=== PATIENT | male | born 1980 | race Caucasian/White ===

== ENCOUNTER 2025-04-18 14:22 | Inpatient (IN) | payer SELFPAY ==
[~2025-04-18] VITALS: Ht 165.1 cm; Wt 75.0 kg
[2025-04-18] MEDS ORDERED: IOHEXOL 350 MG/ML 100 ML VIAL ONE (14:37)
[2025-04-18 14:59] LABS: BASOPHILS % (AUTO) 0.6 % (0.0-2.0); EOSINOPHILS % (AUTO) 2.7 % (1.0-6.0); HEMATOCRIT 42.7 % (41-53); HEMOGLOBIN 14.3 g/dL (13.5-17.5); LYMPHOCYTES # (AUTO) 2.7 K/uL (1.0-4.8); LYMPHOCYTES % (AUTO) 25.2 % (22.0-44.0); MEAN CORPUSCULAR HEMOGLOBIN 28.7 pg (26.0-34.0); MEAN CORPUSCULAR HGB CONC 33.6 G/dL (31.0-37.0); MEAN CORPUSCULAR VOLUME 86 fL (80-100); MONOCYTES # (AUTO) 0.8 K/uL (0.1-1.0); MONOCYTES % (AUTO) 7.4 % (2.0-9.0); NEUTROPHILS # (AUTO) 6.8 K/uL (1.8-7.7); NEUTROPHILS % (AUTO) 64.1 % (40.0-70.0); PLATELET COUNT (AUTO) 175 K/uL (150-450); RED BLOOD CELL COUNT(AUTO) 4.98 MIL/uL (4.50-5.90); RED CELL DISTRIBUTION WIDTH 13.6 % (11.5-14.5); WHITE BLOOD COUNT (AUTO) 10.7 K/uL (4.5-11.0)
[2025-04-18 15:08] LABS: ANION GAP 7 mmol/L (8-16); CALCIUM, TOTAL 8.7 mg/dL (8.8-10.5); CARBON DIOXIDE 25 mmol/L (22-29); CHLORIDE 104 mmol/L (98-107); GLOMERULAR FILTR. RATE CALC > 60 mL/min (>60); GLUCOSE,RANDOM 100 mg/dL (70-110); POTASSIUM 3.8 mmol/L (3.5-5.1); SODIUM SERUM 136 mmol/L (136-145); UREA NITROGEN, BLOOD 11 mg/dL (7-18)
[2025-04-18 15:10] LABS: HEMOGLOBIN A1C 5.2 % (3.8-5.6)
[2025-04-18] MEDS: LORazepam 2 MG TABLET PO ONE (15:10)
[2025-04-18 15:15] LABS: ALANINE AMINOTRANSFERASE 15 U/L (12-78); ALBUMIN 3.1 g/dL (3.4-5.0); ALKALINE PHOSPHATASE 92 U/L (46-116); ASPARTATE AMINOTRANSFERASE 12 U/L (15-37); BILIRUBIN,TOTAL 0.4 mg/dL (0.1-1.0); CHOL/HDL RATIO 6.3 (4.2-7.3); CHOLESTEROL 225 mg/dL (131-200); HDL CHOLESTEROL 36 mg/dL (40-60); LDL CHOL (CALC.) 161 mg/dL (0-130); TRIGLYCERIDES 142 mg/dL (15-150)
[2025-04-18 15:17] LABS: TROPONIN I-HIGH SENSITIVITY 4 ng/L (<76)
[2025-04-18 15:29] LABS: PROTHROMBIN TIME 10.4 SEC (9.4-11.6)
[2025-04-18 15:49] LABS: APPEARANCE,URINE CLEAR (CLEAR); BILIRUBIN,URINE NEGATIVE (NEGATIVE); COLOR,URINE COLORLESS (YELLOW); GLUCOSE, URINE (UA) NEGATIVE (NEGATIVE); KETONES,URINE NEGATIVE (NEGATIVE); LEUKOCYTE ESTERASE ,URINE NEGATIVE (NEGATIVE); NITRATE,URINE NEGATIVE (NEGATIVE); OCCULT BLOOD,URINE NEGATIVE (NEGATIVE); PROTEIN,URINE NEGATIVE (NEGATIVE); UROBILINOGEN,URINE <=1.0 mg/dL (<=1.0)
[2025-04-18 15:55] LABS: ALCOHOL, URINE DRUG SCREEN NEGATIVE (NEGATIVE); AMPHET/METH SCREEN,URINE NEGATIVE (NEGATIVE); BARBITURATE SCREEN, URINE NEGATIVE (NEGATIVE); BENZODIAZEPINES SCREEN,URINE NEGATIVE (NEGATIVE); CANNABINOID SCREEN,URINE NEGATIVE (NEGATIVE); COCAINE SCREEN,URINE NEGATIVE (NEGATIVE); METHADONE SCREEN, URINE NEGATIVE (NEGATIVE); OPIATE SCREEN,URINE NEGATIVE (NEGATIVE); PHENCYCLIDINE SCREEN,URINE NEGATIVE (NEGATIVE)
[2025-04-18] MEDS: ASPIRIN 81 MG CHEWABLE TABLET PO SCH (16:24)
[2025-04-18] MEDS: CLOPIDOGREL BISULFATE 75 MG TABLET PO SCH (16:25)
[2025-04-18] MEDS: ASPIRIN 81 MG CHEWABLE TABLET PO ONE (16:25)
[2025-04-18] MEDS ORDERED: MAGNESIUM HYDROXIDE SUSPENSION 30 ML UDCUP PO PRN (17:45)
[2025-04-18] MEDS ORDERED: HYDROCODONE/ACETAMINOPHEN 5-325 MG TABLET PO PRN (17:45)
[2025-04-18] MEDS ORDERED: ONDANSETRON HCL 4 MG/2 ML VIAL IVP PRN (17:45)
[2025-04-18] MEDS ORDERED: ALBUTEROL SULFATE 2.5 MG/0.5 ML NEB SOLUTION NEB PRN (17:45)
[2025-04-18] MEDS ORDERED: MORPHINE SULFATE 2 MG/ML SYRINGE IVP PRN (17:45)
[2025-04-18] MEDS ORDERED: BISACODYL 10 MG RECTAL RECTAL SUPPOSITORY PR PRN (17:45)
[2025-04-18] MEDS ORDERED: ACETAMINOPHEN 325 MG TABLET PO PRN (17:45)
[2025-04-18] MEDS ORDERED: ZOLPIDEM TARTRATE 5 MG TABLET PO PRN (17:45)
[2025-04-18] MEDS ORDERED: IPRATROPIUM BROMIDE 0.5 MG/2.5 ML NEB SOLUTION NEB PRN (17:45)
[2025-04-18] MEDS: NICOTINE POLACRILEX 4 MG GUM CHEW ONE (18:47)
[2025-04-18] MEDS: NICOTINE 14 MG/24 HOUR PATCH TD SCH (19:15)
[2025-04-18] MEDS: DOCUSATE SODIUM 100 MG CAPSULE PO SCH (20:18)
[2025-04-18 20:42] LABS: TROPONIN I-HIGH SENSITIVITY 6 ng/L (<76)
[2025-04-18 20:53] VITALS: BP 152/102; PULSE 78; RESP 18; TEMP 98.1; O2SAT 96
[2025-04-18] MEDS: ATORVASTATIN CALCIUM 40 MG TABLET PO SCH (21:12)
[2025-04-18 22:35] VITALS: BP 133/78; PULSE 61
[2025-04-19 00:04] VITALS: BP 132/90; PULSE 77; RESP 18; TEMP 98.5; O2SAT 96
[2025-04-19 02:37] LABS: TROPONIN I-HIGH SENSITIVITY 7 ng/L (<76)
[2025-04-19 03:35] VITALS: BP 152/90; PULSE 66; RESP 18; TEMP 98.2; O2SAT 95
[2025-04-19 08:16] VITALS: BP 143/107; PULSE 74; RESP 17; TEMP 98.1; O2SAT 97
[2025-04-19] MEDS: PANTOPRAZOLE SODIUM 40 MG/VIAL IVP SCH (08:22)
[2025-04-19] MEDS: CLOPIDOGREL BISULFATE 75 MG TABLET PO SCH (08:22)
[2025-04-19] MEDS: ASPIRIN 81 MG CHEWABLE TABLET PO SCH (08:22)
[2025-04-19] MEDS ORDERED: METOPROLOL TARTRATE 25 MG TABLET PO SCH (09:00)
== END 2025-04-19 08:54 | disposition left against medical advice (07) | DRG 68 ==
LOC: EDBD 14:22 → EMS 14:22 → EDH 17:38 → 5S 20:45
PROVIDERS: ADMIT Hospitalist; ATTEND Hospitalist
DX: I65.22 Occlusion and stenosis of left carotid artery (principal); I10 Essential (primary) hypertension; F41.9 Anxiety disorder, unspecified; Z53.21 Procedure and treatment not carried out due to patient leaving prior to being seen by health care provider; Z86.73 Personal history of transient ischemic attack (TIA), and cerebral infarction without residual deficits; Z87.891 Personal history of nicotine dependence
CPT/HCPCS: 70496; 70498; 71045; 80053; 80061; 80307; 81001; 82948; 83036; 84484; 85025; 85610; 85730; 86850; 86900; 86901; 93005; 93306; G0378; G0480; J2470; 36415-L1; 36415-TC; 70450; 70450-TC